=== PATIENT | male | born 1945 | race Two or more races ===

== ENCOUNTER 2018-09-10 08:20 | Day surgery (SDC) | payer MEDICARE ==
[~2018-09-10] VITALS: Ht 175.3 cm; Wt 109.8 kg
[~2018-09-10 08:20] MED LIST: ASPI81CH PO; COQ1050 MG PO; Fish Oil 10001000 MG PO; Glucosamine Ch1 EAC4 PO; Hydrochloroth12.5 MG PO; INSDET100 SC; LO-DOSE ASPIRIN81 MG PO; LOSA50 PO; MAGOXI400 PO; METF500C PO; METO25ER PO; METO50ER PO; Metoprolol Tart50 MG PO; SAW PALMETTO PO; Saw Palmetto160 MG PO
== END 2018-09-10 10:39 | disposition home or self-care (01) ==
LOC: ORSCSDS 08:20
PROVIDERS: Internal Medicine Gastroenterology
PROC: 0DJD8ZZ Inspection of Lower Intestinal Tract, Via Natural or Artificial Opening Endoscopic (ICD-10-PCS; principal; 2018-09-10 09:45)
DX: Z12.11 Encounter for screening for malignant neoplasm of colon (principal); K57.30 Diverticulosis of large intestine without perforation or abscess without bleeding; E11.9 Type 2 diabetes mellitus without complications; E66.9 Obesity, unspecified; I10 Essential (primary) hypertension; E78.5 Hyperlipidemia, unspecified; Z68.36 Body mass index [BMI] 36.0-36.9, adult; Z79.82 Long term (current) use of aspirin; Z79.84 Long term (current) use of oral hypoglycemic drugs; Z79.899 Other long term (current) drug therapy
CPT/HCPCS: 82947; J2704; J7120

== ENCOUNTER 2019-12-16 10:41 | Observation (INO) | payer MEDICARE ==
[~2019-12-16] VITALS: Ht 170.2 cm; Wt 79.7 kg
[~2019-12-16 10:41] MED LIST changes: +ASPIR 8181 MG PO; -INSDET100 SC; +LEVEMIR100 UNIT/1 SC; -LO-DOSE ASPIRIN81 MG PO
[2019-12-16 11:27] LABS: Source, Urine Voided
[2019-12-16 11:32] LABS: BASOPHILS ABSOLUTE AUTO 0.03 K/mm3 (0.00-0.23); BASOPHILS PERCENT AUTO 1 % (0-2); EOSINOPHILS ABSOLUTE AUTO 0.08 K/mm3 (0.00-0.68); EOSINOPHILS PERCENT AUTO 1 % (0-6); Hematocrit 46.2 % (37.0-53.0); IMMATURE GRAN ABSOLUTE AUTO 0.01 K/mm3 (0.00-0.10); IMMATURE GRAN PERCENT AUTO 0 % (0-1); LYMPHOCYTES ABSOLUTE AUTO 2.15 K/mm3 (0.84-5.20); LYMPHOCYTES PERCENT AUTO 38 % (21-46); MONOCYTES ABSOLUTE AUTO 0.53 K/mm3 (0.16-1.47); MONOCYTES PERCENT AUTO 9 % (4-13); Mean Corpuscular HGB 33.3 pg (26.0-34.0); Mean Corpuscular HGB Conc 34.6 g/dL (31.5-36.5); Mean Corpuscular Volume 96 fL (80-100); Mean Platelet Volume 10.1 fL (9.1-12.4); NEUTROPHILS ABSOLUTE AUTO 2.82 K/mm3 (1.96-9.15); NEUTROPHILS PERCENT AUTO 50 % (41-73); Platelet Count 178 K/mm3 (150-400); RDW Coefficient Variation 11.6 % (11.7-14.2); RDW Standard Deviation 41.4 fL (35.1-46.3); Red Blood Cell Count 4.81 M/mm3 (4.30-5.90); White Blood Cell Count 5.62 K/mm3 (4.00-11.30)
[2019-12-16 11:46] LABS: Appearance, Urine Clear (Clear); Bilirubin, Urine Neg (Neg); Blood, Urine 1+ (Neg); Color, Urine Yellow (P-Yellow); Glucose Qualitative, Urine 2+ (Neg); Ketones, Urine Neg (Neg); Leukocyte Esterase, Urine Neg (Neg); Nitrite, Urine Neg (Neg); Protein, Urine 1+ (Neg); Urobilinogen, Urine NORM (Normal)
[2019-12-16 11:47] LABS: International Normalized Ratio 0.96; Prothrombin Time Results 10.3 Sec (9.7-11.5)
[2019-12-16 11:51] LABS: Alanine Aminotransfer (ALT/SGP 27 U/L (12-78); Albumin, Blood 3.6 g/dL (3.4-5.0); Albumin/Globulin Ratio 0.9 (0.8-1.8); Alk Phos 70 U/L (50-136); Anion Gap 6 mmol/L (6-16); Aspartate Aminotrans (AST/SGOT 18 U/L (12-37); Bilirubin, Total 0.7 mg/dL (0.1-1.0); Blood Urea Nitrogen 15 mg/dL (8-24); Bun/Creatinine Ratio 14.9 (12.0-20.0); CO2, Blood 28 mmol/L (21-32); Chloride, Blood 103 mmol/L (98-108); Creatinine, Blood 1.01 mg/dL (0.60-1.20); Globulin, Blood 3.9 g/dL (2.2-4.0); Glomerular Filtration Rate >60 (60-); Glucose, Blood 192 mg/dL (70-99); Potassium, Blood 4.3 mmol/L (3.5-5.5); Sodium, Blood 137 mmol/L (136-145); Total Protein, Blood 7.5 g/dL (6.4-8.2); Troponin I <0.015 ng/mL (0.000-0.040)
[2019-12-16 12:00] LABS: Bacteria Not Seen /hpf; Red Blood Cells, Urine 0-2 /hpf (0-2); Squamous Epithelial Cells Rare /hpf (Few); Transitional Epithelial Cells Rare /hpf (0-Rare); White Blood Cells, Urine 0-2 /hpf (0-5)
[2019-12-16] MEDS ORDERED: FUROSEMIDE40 MG PO (13:28)
[2019-12-16] MEDS ORDERED: Potassium Chlo20 ME1 PO (13:28)
[2019-12-16] MEDS ORDERED: METFORMIN HCL1000 M4 PO (13:29)
--- NOTE | 2019-12-16 18:40 | NUR ---
SHIFT SUMMARY ED ADMIT THIS AFTERNOON. PATIENT DENIES PAIN, NAUSEA, AND SHORTNESS OF BREATH. PATIENT UP SBA TO BR. CT SHOWS RIGHT HEMISPHERIC INFARCT. ECHO PENDING. PATIENT EATING DINNER. DENIES AND NEEDS AT THIS TIME.
[2019-12-17 05:24] LABS: CHOL/HDL RATIO 5.2; Cholesterol 214 mg/dL (50-200); HDL Cholesterol 41 mg/dL (>39); LDL/HDL RATIO 2.8; Low Density Lipoprotein Chol 114 mg/dL (0-110); Triglycerides 295 mg/dL (30-160); Very Low Density Lipoprot Chol 59 mg/dL (6-32)
--- NOTE | 2019-12-17 06:45 | NUR ---
12/17/19 0620 PT SITTING ON SIDE OF BED AND TAKING OFF HEART MONITOR LEADS. STATES HE IS READY TO GO HOME. "I'VE BEEN HERE LONG ENOUGH!" INFORMED PT THAT DOCTOR HAS NOT DISCHARGED HIM YET AND TO WAIT UNTIL LATER THIS AM AND SEE IF HE WILL BE SENT HOME. PT CALLING HIS AND TALKING WITH HER ABOUT GOING HOME.
--- NOTE | 2019-12-17 13:14 | NUR ---
PT OUT OF BED, SETTING BED ALARM OFF AT START OF SHIFT. PT ASSISTED TO BTHRM, NEEDING TO VOID; 1P SBA WITH IV PUMP. PT FORGETFUL AND SLIGHTLY IMPULSIVE, WITH SOME ATAXIA. SPEECH TX HERE TO ASSESS PT WHILE EATING BREAKFAST. PT TOLERATING DIET AND LIQUIDS WELL. NO APPARENT DEFICITS NOTED IN EXTREMITIES. ONLY SLIGHT L SIDE FACAIL DROOP. P/T THEN IN TO WORK WITH PT FOR EVAL. PT ABLE TO WALK IN AND OUT IN HALLS. PT BECOMING IMPATIENT WITH BEING IN HOSPITAL AND WANTING TO GO HOME START OF SHIFT, BUT AGREED TO WAIT FOR ORDERED TESTS. PT REPORTED THAT HE CALLED HIS IN THE NIGHT BECAUSE HE WASN'T ABLE TO SLEEP, WANTING TO GO HOME. PT REPORTED THAT HIS WAS NOT HAPPY WITH HIM. PT CALMED DOWN FOR A WHILE, BUT THEN BECAME AGITATED AND IMPATIENT AGAIN. DR YADAV NOTIFIED AND CAME TO TO SEE PT. PT INSISTANT ON GOING HOME TODAY. DR YADAV PLACED D/C ORDERS PENDING ECHO. DR YADAV THEN CALLED REGARDING BP'S SINCE ADMISSION. NEW ORDERS PLACED. VASOTEC GIVEN PER EMAR. BP TAKEN AGAIN AND DR YADAV NOTIFIED. NEW ORDERS RECEIVED AGAIN FOR ANOTHER DOSE OF VASOTEC; GIVEN PER EMAR. BP TO BE NEETU'D AND DR YADAV CALLED IN 30 MINS. BED AND CHAIR ALARMS ALSO D/C'D PER DR YADAV.
[2019-12-17] MEDS ORDERED: CLOP75 PO (14:36)
[2019-12-17] MEDS ORDERED: FAMO20 PO (14:36)
[2019-12-17] MEDS ORDERED: HYDRA50 PO (14:36)
--- NOTE | 2019-12-17 15:59 | NUR ---
BP DECREASED WITH DOSES OF VASOTEC AND PO HYDRALAZINE; SEE CHART. DR YADAV NOTIFIED PER ORDERS. PT OK TO D/C TO HOME NOW, WITH MEDICATION ADJUSTMENTS. D/C MEDS FAXED TO [facility], PER PT REQUEST. PT'S HERE TO P/U PT FOR D/C. INSTRUCTIONS AND MEDICATIONS DISCUSSED WITH PT AND . QUESTIONS ANSWERED. PT INSTRUCTED NOT TO DRIVE AT LEAST UNTIL HE SEE'S HIS PCP THIS WEEK. PT SEEN BY PT/OT BEFORE D/C. P/T RECOMMENDED PT MAY BENEFIT FROM OUTPT P/T. DRONE OPERATOR TO ASSIST WITH SET UP NEEDED. PT ASSISTED OUT TO 'S CAR VIA W/C BY [employer].
== END 2019-12-17 15:51 | disposition home or self-care (01) ==
LOC: ER 10:41 → MEDS 10:42 → ER 13:43 → MEDS 15:58
PROVIDERS: Emergency Medicine; ADMIT Internal Medicine
DX: I63.9 Cerebral infarction, unspecified (principal); I10 Essential (primary) hypertension; E11.9 Type 2 diabetes mellitus without complications; E78.5 Hyperlipidemia, unspecified; Z79.4 Long term (current) use of insulin; Z79.899 Other long term (current) drug therapy; Z88.8 Allergy status to other drugs, medicaments and biological substances
CPT/HCPCS: 36415; 70450; 71045; 80053; 80061; 81001; 82947; 84484; 85025; 85610; 92610; 93005; 93010; 93306; 96372; 96374; 96376; 97112; 97161; 97165; 97535; 99285-25; A9270-GY; G0378; J1650; J7030

== ENCOUNTER → 2020-02-04 | Outpatient (CLI) | payer MEDICARE ==
[~2020-02-04] MED LIST changes: +CLOP75 PO; +FAMO20 PO; +FUROSEMIDE40 MG PO; +HYDRA50 PO; +METFORMIN HCL1000 M4 PO; +Potassium Chlo20 ME1 PO
== END | disposition home or self-care (01) ==
LOC: LAB SHORT 13:00 → PLD 13:00
DX: L72.9 Follicular cyst of the skin and subcutaneous tissue, unspecified (principal)
CPT/HCPCS: 88304

== ENCOUNTER 2022-09-24 10:12 | Emergency (ER) | payer MEDICARE ==
[~2022-09-24] VITALS: Ht 175.3 cm; Wt 106.6 kg
[2022-09-24 10:32] VITALS: BP 170/98
[2022-09-24] MEDS ORDERED: JARDIANCE25 MG PO (10:36)
[2022-09-24] MEDS ORDERED: CYCL10 PO ×2 (12:55→13:00)
[2022-09-24] MEDS ORDERED: Voltaren100 GM TOP (13:00)
[2022-09-24] MEDS ORDERED: LIDO700A20 TOP (13:00)
== END 2022-09-24 13:20 | disposition home or self-care (01) ==
LOC: ER 10:12
DX: S20.229A Contusion of unspecified back wall of thorax, initial encounter (principal); R20.0 Anesthesia of skin; W18.30XA Fall on same level, unspecified, initial encounter; Z88.8 Allergy status to other drugs, medicaments and biological substances; Z79.899 Other long term (current) drug therapy; Z79.4 Long term (current) use of insulin; I10 Essential (primary) hypertension; E11.9 Type 2 diabetes mellitus without complications; E78.5 Hyperlipidemia, unspecified
CPT/HCPCS: 70450; 72070; 72125; 72128; 99284-25